=== PATIENT | female | born 1950 | race Caucasian/White ===

== ENCOUNTER 2017-10-09 12:49 | Observation (INO) | payer MEDICARE, MEDICAID ==
--- NOTE | 2017-10-09 14:13 | RAD ---
Indication: Right shoulder pain since a fall four nights earlier. Comparison: None. Technique: Two views of the right humerus were obtained. Report: The humerus appears to be dislocated inferiorly relative to the glenoid. At the lateral aspect of the humeral head there is a bony fragment. The donor site is not readily visible but is assumed to be the right humeral head. Remaining visualized bones are intact. IMPRESSION: Dislocation of the right shoulder with likely avulsion fracture of either the greater or lesser tuberosity.
[2017-10-09] MEDS ORDERED: fentaNYL* 50 MCG/ML 2 ML VIAL (100 MCG VIAL) IV SLOW PU ONE (14:38)
[2017-10-09] MEDS ORDERED: Midazolam* 1 MG/ML 10 ML VIAL (10 MG) IV ONE (14:38)
--- NOTE | 2017-10-09 14:38 | RAD ---
HISTORY: Trauma COMPARISONS: September 15, 2015 TECHNIQUE: Multiple contiguous axial CT scans were obtained of the head without intravenous contrast. FINDINGS: HEMORRHAGE/INFARCT: There is no hemorrhage or acute infarct. MASSES/SHIFT: There is no mass or shift. EXTRA-AXIAL SPACES: There are no extra-axial fluid collections. SULCI AND VENTRICLES: Again noted is diffuse volume loss of the cerebellum CEREBRUM: There is minimal periventricular hypoattenuation similar to the previous examination BRAINSTEM: There are no focal parenchymal abnormalities. CEREBELLUM: There are no focal parenchymal abnormalities. VESSELS: The vessels are grossly normal. PARANASAL SINUSES: The paranasal sinuses are clear. ORBITS: The orbits are unremarkable. BONES AND SOFT TISSUE: No bone or soft tissue abnormalities are noted. OTHER: None IMPRESSION: NO ACUTE INTRACRANIAL PATHOLOGY. AGAIN NOTED IS DIFFUSE VOLUME LOSS OF THE CEREBELLUM
[2017-10-09] MEDS ORDERED: Flumazenil* 0.1 MG/ML 5 ML MDV ONE (15:25)
[2017-10-09] MEDS ORDERED: Naloxone* 0.4 MG/ML 1 ML VIAL ONE (15:25)
--- NOTE | 2017-10-09 16:57 | RAD ---
INDICATION: Right shoulder dislocation status post external reduction. COMPARISON: Comparison is made with a prior x-ray study of the right humerus of the same day. TECHNIQUE: 2 views of the right shoulder were obtained. FINDINGS: The bones are in normal alignment. There has been interval reduction of the previously noted anterior dislocation. There is a relatively prominent slightly comminuted Hill-Sachs fracture. IMPRESSION: 1. STATUS POST EXTERNAL REDUCTION. THE BONES ARE NORMAL ALIGNMENT. 2. SLIGHTLY PROMINENT COMMINUTED HILL-SACHS FRACTURE.
[2017-10-09] MEDS ORDERED: Ondansetron INJ* 2 MG/ML VIAL IV PRN (19:08)
[2017-10-09] MEDS ORDERED: hydrALAZINE IV* 20 MG/ML VIAL IV SLOW PU PRN (19:11)
[2017-10-09] MEDS ORDERED: Nicotine Patch Removal NOTE FOLLOW UP SCH (21:00)
[2017-10-09] MEDS: Heparin VIAL(*) 5000 UNITS/ML VIAL (FIVE THOUSAND) SUBCUT SCH (21:13)
[2017-10-09] MEDS: Acetaminophen TAB* 325 MG PO PRN (21:13)
--- NOTE | 2017-10-10 00:51 | HP ---
CC: Dr. Rosado * ADMISSION HISTORY AND PHYSICAL: DATE OF ADMISSION: 10/09/17 PRIMARY CARE PROVIDER: Dr. Rosado. HEALTHCARE PROXY: She identifies as her home health aide who is present, Kailey. Noted also to have a son, Kris, who is in the region, is involved in her healthcare. CODE STATUS: Full. SOURCE OF INFORMATION: History obtained from interview with patient, her home health aide, and review of past medical records. RELIABILITY: Fair. CHIEF COMPLAINT: Right shoulder pain. HISTORY OF PRESENT ILLNESS: This 66-year-old female with past medical history of panic attacks, emphysema, and tobacco abuse, MS, who has been in her usual state of health until Sunday approximately 5 days prior to presentation, had a fall without loss of consciousness or head strike, landed on her right shoulder. She notes that she had difficulty getting up and lied on the floor for a while. After getting up, she had severe pain in her right shoulder. However, her did not want her go to the ED. When I asked why he did not want her go to the ED, she notes "it's just the way he is." She notes that her is bedbound and could not inhibit her from going to the emergency room nor from calling EMS nor from pushing her alert button, but she chose not to do so. The patient denied any preceding chest pain, shortness of breath, lightheadedness prior to fall, and no confusion status post the fall. Of note, she is already unsteady from her MS and her home health aide has been concerned that she was going to fall prior to this event. When seen today by her home health aide, Kailey, who comes once a week, she noted her right shoulder and entire arm was severely ecchymotic associated with severe pain for which she recommended transport to the [facility] for evaluation. PAST MEDICAL HISTORY: Includes anxiety, panic attacks, emphysema, tobacco abuse , multiple sclerosis. HOME MEDICATIONS: Include: 1. Nicotine gum. 2. Fluoxetine 10 mg daily. ALLERGIES: No known drug allergies. FAMILY HISTORY: Reviewed and noncontributory for a CAD or CVA. SOCIAL HISTORY: Qoa-wnec-tshn-per-day tobacco for last 50 years. Occasional alcohol. No illicit's. Lives with her , who she delivers care for. REVIEW OF SYSTEMS: As per HPI, otherwise all other systems negative. PHYSICAL EXAMINATION GENERAL: Sitting up in bed, interactive, pleasant, no apparent distress, fairly unkempt. VITAL SIGNS: In the emergency room, 172/133, heart rate 102, T-max 97.9, breathing 20 times per minute. HEENT: Oropharynx is clear. Has poor dentition. Moist mucous membranes. Sclerae are anicteric. LUNGS: Have decreased breath sounds throughout. HEART: Has regular rate and rhythm. ABDOMEN: Soft, nontender, nondistended. EXTREMITIES: Warm and well perfused. She has good pulses bilaterally in her radial pulses. She is neurovascularly intact bilaterally in upper extremities. She has ecchymotic right arm from her shoulder down to her forearm. DIAGNOSTIC STUDIES/LAB DATA: Pertinent labs reviewed: No labs. Pertinent data reviewed: Shoulder x-ray, impression: Status post external reduction. The bones are normal alignment. Slightly prominent comminuted Hill - Sachs fracture. ASSESSMENT AND PLAN: This is a 66-year-old female who presenting to the hospital 5 days after a fall at home, thought to be mechanical in nature, suffered a shoulder dislocation and a Hill-Sachs fracture. 1. Shoulder dislocation has been reduced in the emergency room, pain controlled overnight. There is some concern that she is unable to care for herself at home and that her inhibit her from coming to the emergency room, although he does remain bed bound. For this reason and for additional pain control and observation, the patient will be admitted to the observation overnight. Social Work consult as well as PT and OT given her lack of ability to use her right arm in already a significantly immobile person. 2. Depression. Continue Prozac. 3. Tobacco abuse. Nicotine patch. 4. Hypertension. Probably in the setting of pain, we will treat pain and use hydralazine p.r.n. as needed for systolics over 180. 5. DVT prophylaxis. Heparin subcu. [id number]/[facility] #: [id number] [facility]
--- NOTE | 2017-10-10 03:44 | ED ---
Majo Mendoza Gabriel, scribed for Boby Lee MD on 10/09/17 at 1339 . Complex/Multi-Sys Presentation - HPI Summary HPI Summary: This patient is a 66 year old F BIBA presenting to [facility] accompanied by home health aide with a chief complaint of right arm pain s/p fall since 4 days prior. She states she wasnt using her walker like instructed when she fell. The patient rates the pain 7/10 in severity. Symptoms aggravated by movement of UE. Symptoms alleviated by nothing. 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 Patient reports numbness of lower part of right arm. She also states she cant lift the same arm. Patient denies GARCÍA and LOC. - History Of Current Complaint Chief Complaint: EDGeneral Time Seen by Provider: 10/09/17 13:14 Hx Obtained From: Patient, Family/Patient Access Registrar - staff home therapy rn Onset/Duration: Still Present Associated Signs And Symptoms: Positive: Other - Numbness in right arm. NEGATIVE : LOC. Negative: Headache - Allergies/Home Medications Allergies/Adverse Reactions: Allergies Allergy/AdvReac Type Severity Reaction Status Date / Time No Known Allergies Allergy Verified 07/28/15 10:36 Home Medications: Home Medications FLUoxetine CAP* [PROzac CAP*] 10 mg PO DAILY 10/09/17 [History Confirmed ] Nicotine GUM* 2 mg PO Q2H PRN 10/09/17 [History Confirmed 10/09/17] PMH/Surg Hx/FS Hx/Imm Hx Previously Healthy: No Endocrine/Hematology History: Denies: Hx Diabetes Cardiovascular History: Denies: Hx Hypertension - Surgical History Surgery Procedure, Year, and Place: tubal ligation Infectious Disease History: Yes Infectious Disease History: Denies: Hx Clostridium Difficile, Traveled Outside the [place] in Last 30 Days - Family History Known Family History: Positive: Other - cancer Negative: Hypertension, Diabetes - Social History Alcohol Use: Occasionally Alcohol Amount: One a day Substance Use Type: Reports: None Smoking Status (MU): Current Every Day Smoker Type: Cigarettes Amount Used/How Often: 1/2 PPD Length of Time of Smoking/Using Tobacco: 46 years Have You Smoked in the Last Year: Yes Review of Systems Negative: Fever Musculoskeletal: Other - Weakness in right arm (difficult to move) Neurological: Negative - LOC , Other - Pain in right arm as well as numbness Negative: Headache All Other Systems Reviewed And Are Negative: Yes Physical Exam - Summary Physical Exam Summary: Appearance: Well-appearing Eyes: Normal, Conjunctiva clear ENT: Normal ENT inspection Face: There is a periorbital hematoma on her right side that appears to be healing. Dental: Normal Neck: Supple, non-tender, no lymphadenopathy Lungs: Lungs clear, normal breath sounds, no respiratory distress, no accessory muscle use. Heart: RRR, no murmur, pulses normal. Distal pulses intact with good perfusion Abdomen: Nontender, soft. Musculoskeletal: Ecchymosis on right upper arm. Right upper arm is also swollen and tender to ROM Neurological: Normal Psychiatric: Normal Skin: Normal Triage Information Reviewed: Yes Vital Signs On Initial Exam: Initial Vitals Temp Pulse Resp BP Pulse Ox 97.9 F 93 17 114/77 96 10/09/17 13:00 10/09/17 13:00 10/09/17 13:00 10/09/17 13:00 10/09/17 13:00 Vital Signs Reviewed: Yes - [place] Coma Scale Coma Scale Total: 15 Procedures - Joint Reduction Joint Reduction Site: shoulder (R) Conscious Sedation: Yes - Fentanyl 100ug, Versed 4 mgs arrousable through out Reduction Attempts: 1 - traction-counter traction Pre-Procedure NV Exam: Yes Post Joint Reduction Film: joint reduced Diagnostics - Vital Signs Vital Signs Temp Pulse Resp BP Pulse Ox 10/09/17 13:00 97.9 F 93 17 114/77 96 - Laboratory Lab Statement: Any lab studies that have been ordered have been reviewed, and results considered in the medical decision making process. - Radiology Humerus XRAY Radiology Interpretation Completed By: Radiologist - Dislocation of the right shoulder with likely avulsion fracture of either the greater or lesser tuberosity. ED physician has reviewed this radiology report and agrees. - CT CT Brain CT Interpretation Completed By: Radiologist - NO ACUTE INTRACRANIAL PATHOLOGY. AGAIN NOTED IS DIFFUSE VOLUME LOSS OF THE CEREBELLUM. ED physician has reviewed this report and agrees. Complex Multi-Symp Course/Dx Course Of Treatment: Ms. Markham presented with a swollen ecchymotic right upper arm. N/V/Mwas intact except for decreased sensation over the deltoid and possibly the dosomedial lower arm. She also has a resolving left periorbital hematoma. She was found to have a dislocated shoulder with a Hill Sacs deformity. Her shoulder was reduced with moderate conscious sedation and she is being admitted OBV. - Diagnoses Provider Diagnoses: Dislocation of right shoulder with injury of brachial plexus Discharge - Discharge Plan Condition: Stable Disposition: ADMITTED TO [facility] The documentation as recorded by the Majo cage Gabriel accurately reflects the service I personally performed and the decisions made by me, Boby Lee MD.
[2017-10-10] MEDS: Heparin VIAL(*) 5000 UNITS/ML VIAL (FIVE THOUSAND) SUBCUT SCH ×2 (06:01→14:21)
[2017-10-10] MEDS: Acetaminophen TAB* 325 MG PO PRN ×2 (08:03→14:23)
[2017-10-10] MEDS ORDERED: Nicotine PATCH 7 MG/24 HR* PATCH TRANSDERM SCH (09:00)
[2017-10-10] MEDS ORDERED: FLUoxetine CAP* 10 MG PO SCH (09:00)
[2017-10-10 12:52] VITALS: BP 101/53
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
== END 2017-10-10 15:15 | disposition home or self-care (01) ==
LOC: ED 12:49 → MED 19:08
PROVIDERS: ADMIT Internal Medicine; ATTEND Internal Medicine
DX: S42.291A Other displaced fracture of upper end of right humerus, initial encounter for closed fracture (principal); W01.0XXA Fall on same level from slipping, tripping and stumbling without subsequent striking against object, initial encounter; Y92.009 Unspecified place in unspecified non-institutional (private) residence as the place of occurrence of the external cause; R20.0 Anesthesia of skin; F17.210 Nicotine dependence, cigarettes, uncomplicated
CPT/HCPCS: 23675; 70450; 96372; 96374; 99285; A9270-GY; G0378; G8990-GO-CI; G8991-GO-CH; G8992-GO-CH; J1644; J2250; J2310; J3010